=== PATIENT | female | born 1930 | race Two or more races ===

== ENCOUNTER 2017-04-01 15:38 | Outpatient (CLI) | payer MEDICARE, BC ==
--- NOTE | 2017-04-02 10:29 | Diagnostic Imaging Report ---
Indication: Chest pain status post fall Technique: Two views of the chest Comparison: none Findings: No evidence of pneumothorax. Lungs and pleural spaces are clear. There are degenerative changes of the thoracic spine. There as possibly been a vertebral augmentation procedure of the T12 vertebral body The heart size is normal. Aorta is tortuous. The bones are grossly intact. Impression: No acute process
--- NOTE | 2017-04-02 10:33 | Diagnostic Imaging Report ---
Indication: FALL, pain Technique: Multiple views of the left ribs Comparison: None Findings: There is acuity indeterminate fracture deformity of the anterolateral left fifth rib, seen on this single view, suspect old. There is a chronic healed fracture deformity of the anterolateral left sixth rib. No definite acute fractures otherwise. No gross pneumothorax. Impression: Acuity indeterminate but probably old fracture deformity of the anterolateral left fifth rib. Correlate with clinical findings Other findings as noted
--- NOTE | 2017-04-02 10:39 | Diagnostic Imaging Report ---
Indication: FALL, pain Technique: 4 views of the lumbar spine Comparison: None Findings: There is grade 2 spondylolisthesis of L4 on L5. Most likely degenerative in nature, as no definite pars defect is demonstrated. There is also grade 1 spondylolisthesis of L3 on L4. The remainder of the bony alignment is normal. There is degenerative disc narrowing at L4-5 and L5-S1. The remaining disc spaces are preserved. Density in the left side of the T12 vertebral body suggests prior unipedicular vertebroplasty. There is height loss of T12. The lumbar vertebral body heights are preserved. No acute fractures. The pedicles are intact. Sacral arches are preserved. Sacroiliac joint spaces are preserved. Surgical hardware is seen in the left hip. There are degenerative changes of the facets at multiple levels bilaterally. Bones are osteoporotic Impression: No acute bony trauma Spondylolisthesis of L4 on L5 and L3 on L4, as described. No associated pars defect; suspect degenerative in nature Evidence of prior T12 compression fracture and subsequent vertebral augmentation procedure Degenerative changes, as described Osteoporotic change
--- NOTE | 2017-04-02 10:41 | Diagnostic Imaging Report ---
Indication: PAIN Technique: 2 views of the right hip Comparison: None Findings: No acute fractures. No dislocations. Joint spaces are preserved. Bones are demineralized. Impression: No acute process Note, however, that in elderly osteoporotic patients, nondisplaced hip or pelvic fractures can easily be occult. Considered cross-sectional imaging for further evaluation if there is high clinical suspicion
--- NOTE | 2017-04-02 12:04 | Diagnostic Imaging Report ---
Indication: PAIN Technique: 2 views of the left hip Comparison: None Findings: Hardware is seen reducing old healed intertrochanteric fracture. Lucencies within the femoral head an AP view could be artifactual but raises concern for acute femoral head fracture. Fracture fragments adjacent to the greater trochanter are presumably related to the prior injury. Old healed fracture deformities of the left superior and inferior pubic rami are demonstrated. Bones are osteoporotic. The joint space is preserved Impression: Lucencies through the femoral head on a single view, could be artifactual but acute fracture not excludable. Correlate with clinical findings, consider cross-sectional imaging if clinically indicated Evidence of prior surgery and prior trauma, as described Findings discussed by phone with Dr. Fox at 11:16 AM
== END 2017-04-01 17:38 | disposition home or self-care (01) ==
LOC: RAD 15:38
DX: R52 Pain, unspecified (principal); Z91.81 History of falling
CPT/HCPCS: 71020; 72110; 73502